=== PATIENT | female | born 1930 | race Caucasian/White ===

== ENCOUNTER 2018-03-06 08:13 | Inpatient (IN) | payer OTHER, MEDICARE ==
[2018-02-28 12:59] LABS: BILIRUBIN,URINE NEGATIVE (NEGATIVE); BLOOD, URINE NEGATIVE (NEGATIVE); CLARITY/URINE CLEAR (CLEAR); COLOR,URINE YELLOW (YELLOW); GLUCOSE,URINE NEGATIVE (NEGATIVE); KETONES,URINE NEGATIVE (NEGATIVE); LEUKOCYTE ESTERASE ,URINE 3+ (NEGATIVE); NITRITE, URINE NEGATIVE (NEGATIVE); PROTEIN URINE NEGATIVE (NEGATIVE); UROBILINOGEN,URINE 0.2 (0.2-1.0)
[2018-02-28 13:04] LABS: BASOPHILS # (AUTO) 0.1 K/uL (0.0-0.2); BASOPHILS % (AUTO) 1.1 % (0.0-2.0); EOSINOPHILS # (AUTO) 0.4 K/uL (0.0-0.4); EOSINOPHILS % (AUTO) 6.1 % (0.0-4.0); HEMATOCRIT 33.9 % (36-48); HEMOGLOBIN 11.2 g/dL (12.0-16.0); LYMPHOCYTES # (AUTO) 1.3 K/uL (1.0-5.5); LYMPHOCYTES % (AUTO) 20.9 % (20.5-51.5); MEAN CORPUSCULAR HEMOGLOBIN 32 pg (27-31); MEAN CORPUSCULAR HGB CONC 33 % (32-36); MEAN CORPUSCULAR VOLUME 97 fL (79.0-98.0); MONOCYTES # (AUTO) 0.3 K/uL (0.0-1.0); MONOCYTES % (AUTO) 4.8 % (1.7-9.3); NEUTROPHILS # (AUTO) 4.3 K/uL (1.8-7.7); NEUTROPHILS % (AUTO) 67.1 % (40.0-70.0); PLATELET COUNT (AUTO) 236 K/uL (130-430); RED BLOOD CELL COUNT(AUTO) 3.49 MIL/uL (4.2-6.2); WHITE BLOOD COUNT (AUTO) 6.4 K/uL (4.8-10.8)
[2018-02-28 13:06] LABS: BACTERIA,URINE MODERATE /HPF (None Seen); MUCUS,URINE None Seen /LPF (None Seen); RBC,URINE 0-3 /HPF (0-3)
[2018-02-28 13:15] LABS: ANION GAP 4 (5-15); CALCIUM 9.5 mg/dL (8.4-11.0); CHLORIDE 101 mmol/L (98-107); CREATININE 1.41 mg/dL (0.55-1.30); GLUCOSE 103 mg/dL (70-99); POTASSIUM 4.1 mmol/L (3.5-5.1); SODIUM SERUM 137 mmol/L (136-145); UREA NITROGEN, BLOOD 28 mg/dL (8-21)
[~2018-03-06] VITALS: Ht 165.1 cm; Wt 66.2 kg
[2018-03-06] VITALS (8 sets, daily range): BP systolic 96–129
[2018-03-06] MEDS ORDERED: CLINDAMYCIN 600 mg/50mL D5W 50 ML IV ONE (08:15)
[2018-03-06] MEDS ORDERED: TRANEXAMIC ACID 1,000 MG/10 ML VIAL IV ONE ×2 (08:30→13:45)
[2018-03-06] MEDS ORDERED: VANCOMYCIN HCL 1,000 MG in NS 250 ML IV SCH (08:30)
[2018-03-06] MEDS ORDERED: CALC-823 PO (09:30)
[2018-03-06] MEDS ORDERED: HYDR-4272 PO (09:30)
[2018-03-06] MEDS ORDERED: AMIO100T4 PO (09:30)
[2018-03-06] MEDS ORDERED: VIT B 12 (09:30)
[2018-03-06] MEDS ORDERED: ACET-2634 PO (09:30)
[2018-03-06] MEDS ORDERED: APIX2.5T PO (09:30)
[2018-03-06] MEDS ORDERED: FERR140T PO (09:30)
[2018-03-06 09:54] LABS: INR 1.1 (0.8-1.2); PROTHROMBIN TIME 10.8 SECS (9.5-12.5)
[2018-03-06] MEDS ORDERED: POLYMYXIN 500,000/BACIT.10,000 UNITS in NS IRR 1 L IR ONE (10:43)
[2018-03-06] MEDS ORDERED: METOCLOPRAMIDE HCL 10 MG/2 ML VIAL IVP PRN (13:15)
[2018-03-06] MEDS ORDERED: LR 1,000 ML IV SCH (13:15)
[2018-03-06] MEDS ORDERED: MORPHINE 4 MG/ML INJ. SYRINGE IVP PRN ×3 (13:15)
[2018-03-06] MEDS ORDERED: fentaNYL CITRATE 250 MCG/5 ML AMP ONE (13:45)
[2018-03-06] MEDS ORDERED: ONDANSETRON HCL 4 MG/2 ML VIAL ONE (13:45)
[2018-03-06] MEDS ORDERED: SUGAMMADEX SODIUM 200 MG/2 ML VIAL IV ONE (13:45)
[2018-03-06] MEDS ORDERED: ROCURONIUM BROMIDE 10 MG/ML (ZEMURON) ONE (13:45)
[2018-03-06] MEDS ORDERED: LR 1,000 ML IV.SOLN IV ONE (13:45)
[2018-03-06] MEDS ORDERED: PROPOFOL 200MG/ 20ML VIAL (DIPRIVAN) IV ONE (13:45)
[2018-03-06] MEDS ORDERED: MIDAZOLAM HCL 5 MG/ML VIAL (VERSED) IV ONE (13:45)
[2018-03-06] MEDS ORDERED: SEVOFLURANE 15 MIN GAS INH ONE (13:45)
[2018-03-06] MEDS ORDERED: MORPHINE SULFATE 10MG/10ML PF AMP ONE (13:45)
[2018-03-06] MEDS ORDERED: ePHEDrine sulfate 50 MG/ML VIAL ONE (13:45)
[2018-03-06] MEDS ORDERED: KETOROLAC TROMETHAMINE 30 MG VIAL ONE (13:45)
[2018-03-06] MEDS ORDERED: ATROPINE SULFATE 0.4 MG/ML VIAL ONE (13:59)
[2018-03-06] MEDS ORDERED: ONDANSETRON HCL 4 MG/2 ML VIAL IVP PRN (14:00)
[2018-03-06] MEDS ORDERED: DIPHENHYDRAMINE INJ 50 MG/ML VIAL IVP PRN (14:00)
[2018-03-06] MEDS ORDERED: ACETAMINOPHEN 500 MG TABLET PO PRN (14:00)
[2018-03-06] MEDS ORDERED: ATROPINE SULFATE 0.4 MG/ML VIAL SUBCUT ONE (14:00)
[2018-03-06] MEDS ORDERED: DIPHENHYDRAMINE HCL 25 MG CAPSULE PO PRN (14:00)
[2018-03-06] MEDS ORDERED: MILK OF MAGNESIA 30 ML UDC PO PRN (14:00)
--- NOTE | 2018-03-06 15:17 | NUR ---
CONSULT CARDIOLOGY [facility] [address] DR HUNTER [phone] S/W SKIP OFFICE @ [id number]
[2018-03-06] MEDS: D5/0.45 NS 1,000 ML IV SCH ×2 (15:23→22:48)
--- NOTE | 2018-03-06 15:26 | NUR ---
OR ADMISSION REPORT IS RECEIVED FROM OR NURSE AND CARE IS ENDORSED TO MYSELF. PT IS RECEIVED AWAKE, ALERT, AND ORIENTED X4. PT IS GROGGY AND SLEEPY. INITIAL VS SHOW LOW BLOOD PRESSURE AND LOW HEART RATE TRENDING IN MID TO LOW 40S. PT HAS CARD CATHETER DRAINING TO GRAVITY. PT IS ON 1L O2 VIA NC WITH O2 SATURATIONS SUSTAINING AT 95%. WHITE BOARD IS UPDATED AND FAMILY IS MADE AWARE OF PLAN. ICE PACK ON LEFT HIP, PLEXI PULSES ON BILATERAL FEET. PEDAL PULSES ARE PRESENT AND PT IS ABLE TO WIGGLE TOES. CURRENT NEEDS ARE MET. BED IS AT LOWEST POSITION, CALL LIGHT WITHIN REACH, THREE SIDE RAILS UP, BED ALARM IS ON. WILL CONTINUE TO MONITOR.
--- NOTE | 2018-03-06 16:45 | NUR ---
ROUNDS LATE ENTRY DUE TO PT CARE: PT IS IN A DEEP SLEEP. PT IS HARD TO AROUSE. BLOOD PRESSURE HAS IMPROVED BUT O2 IS GOING DOWN AND PT WAS PLACED ON MASK O2 ON 2L. PEDAL PULSES ARE PRESENT AND STRONG. DRESSING IS CLEAN, DRY, AND INTACT. DR. PARISI WAS PAGED. WILL CONTINUE TO MONITOR.
[2018-03-06] MEDS ORDERED: TRANEXAMIC ACID 1,000 MG in NS 50 ML IV ONE (17:00)
[2018-03-06] MEDS ORDERED: LevALBUTEROL HCL 1.25 MG/0.5 ML *CONC.* VIAL.NEB (XOPENEX CONC.) INH PRN (18:30)
--- NOTE | 2018-03-06 18:30 | NUR ---
ICU TRANSFER SPOKE WITH DR. PARISI REGARDING PT BREATHING AND LOW HEART RATE AND HE ORDERED FOR PT TO BE TRANSFERRED TO ICU. REPORT WAS GIVEN TO VARGHESE CHARGE NURSE IN ICU. SPOUSE WAS CALLED AND NOTIFIED AND IS AWARE. DR. BRISENO WAS ALSO PAGED AND DR. CELESTIN IS GEOTHERMAL FIELD TECHNICIAN. AWAITING CALL BACK.
--- NOTE | 2018-03-06 18:56 | NUR ---
Paged Dr. River, Dr Benz is food demonstrator, dialed [phone], s/w Magdalena.
--- NOTE | 2018-03-06 19:30 | NUR ---
PM ASSESSMENT REPORT RECEIVED FROM VARGHESE HOOPER. PT RECEIVED IN BED WITH EYES CLOSED, PT IS EASILY AROUSABLE, AAOX3, AND LETHARGIC. PT ON 1L MASK, PT CHANGED TO NC AT 1L. PT A-FIB ON MONITOR. 18G TO LFA INFUSING D5 1/2 NS @ 125 CC/HR. INCISION SITE NOTED TO L HIP, DRESSING CDI. CARD CATH IN PLACE DRAINING GABBY URINE TO GRAVITY. ABDUCTOR PILLOW IN PLACE. PLEXI-PULSES IN PLACE. TRAPEZE AVAILABLE FOR PT AT BEDSIDE. PT DENIES ANY PAIN OR DISCOMFORT AT THIS TIME. HOB ELEVATED, BED IN LOWEST POSITION, CALL LIGHT IN REACH. WILL CONTINUE TO MONITOR PT.
[2018-03-06] MEDS: LevALBUTEROL HCL 1.25 MG/0.5 ML *CONC.* VIAL.NEB (XOPENEX CONC.) INH SCH (19:44)
--- NOTE | 2018-03-06 19:45 | NUR ---
MD ROUNDS DR. MAYFIELD AT BEDSIDE TO EVALUATE PT. ORDERS LEFT AND WILL BE CARRIED OUT.
[2018-03-06] MEDS: SENNOSIDES 8.6 MG TABLET PO SCH (20:14)
--- NOTE | 2018-03-06 21:15 | NUR ---
MD CALL DR. RIVER CALLED FOR PT UPDATES. UPDATED ON PT CONDITION AT THIS TIME. NO NEW ORDERS LEFT AT THIS TIME. WILL CONTINUE TO MONITOR PT.
[2018-03-07] VITALS (24 sets, daily range): BP systolic 90–124
--- NOTE | 2018-03-07 | NUR ---
RN ROUNDS PT RESTING COMFORTABLY IN BED WITH EYES CLOSED, SNORING NOTED. VSS, NO S/S OF DISTRESS NOTED. PT IS EASILY AROUSABLE AND REPOSITIONED AT THIS TIME. PT ENCOURAGED TO USE IS, UP TO 1000 ML VOLUME NOTED. PT DENIES ANY PAIN OR DISCOMFORT AT THIS TIME. WILL CONTINUE TO MONITOR PT.
[2018-03-07] MEDS: LevALBUTEROL HCL 1.25 MG/0.5 ML *CONC.* VIAL.NEB (XOPENEX CONC.) INH SCH ×4 (01:08→19:26)
--- NOTE | 2018-03-07 02:30 | NUR ---
RN ROUNDS PT REPOSITIONED AT THIS TIME. PT TOLERATED REPOSITIONING WELL, NO S/S OF DISTRESS NOTED. BREATHING IS EVEN AND UNLABORED. PT DENIES ANY PAIN OR DISCOMFORT AT THIS TIME. WILL CONTINUE TO MONITOR.
--- NOTE | 2018-03-07 02:43 | NUR ---
PAGED DR. PARISI PAGED REGARDING PT URINE OUTPUT OF 100 CC SINCE BEGINNING OF SHIFT. PER MD NO CHANGES TO IVF AND NO NEW ORDERS RECEIVED. WILL CONTINUE TO MONITOR PT.
[2018-03-07] MEDS ORDERED: NACL 0.9% 1,000 ML IV ONE (04:15)
--- NOTE | 2018-03-07 04:15 | NUR ---
PAGELisandro MAYFIELD MADE AWARE OF PT HR DROPPING TO LOW 30s, BP DROPPING TO LOW 90s, AND UO OF 110 CC THROUGHOUT SHIFT SO FAR. MD TO ORDER 1000 CC NS BOLUS. WILL CARRY OUT ORDERED AND CONTINUE TO MONITOR PT.
[2018-03-07] MEDS ORDERED: ACETAMINOPHEN 500 MG TABLET PO SCH (06:00)
--- NOTE | 2018-03-07 06:22 | NUR ---
RN ROUNDS PT RESTING COMFORTABLY IN BED WITH EYES CLOSED, PT EASILY AROUSABLE. VSS, NO S/S OF DISTRESS NOTED, BREATHING IS EVEN AND UNLABORED ON 1L NC. PT DENIES ANY PAIN OR DISCOMFORT AT THIS TIME. WILL CONTINUE TO MONITOR PT.
[2018-03-07] MEDS: D5/0.45 NS 1,000 ML IV SCH ×3 (06:40→17:38)
[2018-03-07 06:51] LABS: ANION GAP 5 (5-15); BASOPHILS % (AUTO) 0.2 % (0.0-2.0); CHLORIDE 103 mmol/L (98-107); CREATININE 1.49 mg/dL (0.55-1.30); EOSINOPHILS # (AUTO) 0.2 K/uL (0.0-0.4); EOSINOPHILS % (AUTO) 1.8 % (0.0-4.0); GLUCOSE 133 mg/dL (70-99); HEMATOCRIT 26.5 % (36-48); HEMOGLOBIN 8.6 g/dL (12.0-16.0); LYMPHOCYTES # (AUTO) 0.5 K/uL (1.0-5.5); LYMPHOCYTES % (AUTO) 5.2 % (20.5-51.5); MEAN CORPUSCULAR HEMOGLOBIN 32 pg (27-31); MEAN CORPUSCULAR HGB CONC 33 % (32-36); MEAN CORPUSCULAR VOLUME 98 fL (79.0-98.0); MONOCYTES # (AUTO) 0.6 K/uL (0.0-1.0); MONOCYTES % (AUTO) 6.5 % (1.7-9.3); NEUTROPHILS # (AUTO) 8.4 K/uL (1.8-7.7); NEUTROPHILS % (AUTO) 86.3 % (40.0-70.0); PLATELET COUNT (AUTO) 174 K/uL (130-430); POTASSIUM 4.4 mmol/L (3.5-5.1); RED BLOOD CELL COUNT(AUTO) 2.71 MIL/uL (4.2-6.2); RED CELL DISTRIBUTION WIDTH 15.4 % (9.0-15.0); SODIUM SERUM 137 mmol/L (136-145); UREA NITROGEN, BLOOD 32 mg/dL (8-21); WHITE BLOOD COUNT (AUTO) 9.7 K/uL (4.8-10.8)
--- NOTE | 2018-03-07 07:19 | NUR ---
ENDORSEMENT BEDSIDE REPORT GIVEN TO LAURE WILLSON RN USING SBAR APPROACH.
--- NOTE | 2018-03-07 07:34 | NUR ---
AM NOTES IN BED, AWAKE, ALERT. DENIES ANY PAIN OR DISCOMFORT. ON ABDUCTOR PILLOW. LEFT HIP DRESSING IS DRY AND INTACT. CARD CATH EMPTY AT THIS TIME. IVF INFUSING WELL. DENIES ANY SHORTNESS OF BREATH, CHEST PAIN OR ANY DISCOMFORT. UPDATE PLAN OF CARE. WILL CONTINUE TO MONITOR.
--- NOTE | 2018-03-07 08:00 | NUR ---
notes- spoke to dr. aguillon and made aware and labs results. stated that he wants to be on xarelto for 1-[address] Ware.
--- NOTE | 2018-03-07 08:10 | NUR ---
rounds Seen by Dr. Sanchez and spoke to Dr. River about the xarelto. Per Dr. sanchez he will take care of it. Dr. Sanchez also hold the therapy for today.
[2018-03-07] MEDS ORDERED: NS 500 ML IV ONE (08:15)
[2018-03-07] MEDS: MULTIVITAMINS TAB 1 TABLET PO SCH (08:40)
[2018-03-07] MEDS: CALCIUM CARBONATE/VITAMIN D3 1 TAB TABLET PO SCH (08:40)
[2018-03-07] MEDS: ASCORBIC ACID 500 MG TABLET PO SCH ×2 (08:40→20:21)
[2018-03-07] MEDS: FERROUS SULFATE 140 MG TABLET.ER PO SCH ×2 (08:41→20:21)
[2018-03-07] MEDS ORDERED: APIXABAN 2.5 MG TABLET PO SCH (09:00)
[2018-03-07] MEDS ORDERED: AMIODARONE HCL 200 MG TABLET PO SCH (09:00)
[2018-03-07] MEDS ORDERED: FERROUS SULFATE 140 MG TABLET.ER PO SCH (09:00)
--- NOTE | 2018-03-07 09:20 | NUR ---
P.T. NOTES RECEIVED P.T. EVAL ORDER FROM DR. RIVER, PT WAS ADMITTED TO ICU, SPOKE WITH LAURE WILLSON RN WHO SAID DR. HUNTER WANTS TO HOLD OFF P.T. FOR ONE MORE DAY. CALL WAS MADE TO DR. RIVER'S EXCHANGE AND LEFT MESSAGE.
--- NOTE | 2018-03-07 09:53 | NUR ---
Nutrition Update Mervin Scale 15 noted. Pt admitted for unilateral primary osteoarthritis, L hip. Diet: regular BMI: 24.3 kg/m2 RD to follow per nutrition care standards.
--- NOTE | 2018-03-07 09:55 | NUR ---
notes-in bed, resting. breathing even and unlabored. Bolus of NS 500 done. no acute distress noted. will monitor.
[2018-03-07] MEDS: RIVAROXABAN 10 MG TABLET PO SCH (09:59)
[2018-03-07] MEDS ORDERED: RIVAROXABAN 10 MG TABLET PO SCH (10:00)
--- NOTE | 2018-03-07 10:30 | NUR ---
Notes- In bed, awake. at bedside. denies any pain or discomfort. Patient stated that she is comfortable at this time and refused to be turned. will monitor.
--- NOTE | 2018-03-07 12:54 | NUR ---
MD ROUNDS SEEN BY DR. RIVER AT BEDSIDE. MADE AWARE THAT THERAPY WAS HELD TODAY PER DR. HUNTER.
[2018-03-07] MEDS: HYDROcodone/ACETAMIN 10-325 MG TAB PO PRN (14:30)
--- NOTE | 2018-03-07 14:32 | NUR ---
Notes Turned and repositioned, Patient complain of 7/10 pain level on surgical site and her left knee. medicated with norco as ordered. no acute distress noted. will monitor.
--- NOTE | 2018-03-07 16:06 | NUR ---
Notes- In bed, resting. Pain is controlled and better per patient. instructed and assisted to use incentive spirometer. pt verbalize understanding. Turned and repositioned.
--- NOTE | 2018-03-07 17:30 | NUR ---
Notes Pt is sleeping, wants to eat later. denies any pain or discomfort. no distress noted.
--- NOTE | 2018-03-07 18:46 | NUR ---
Notes In bed with eyes closed, breathing even and unlabored. abductor pillow on, uses incentive spirometer this shift, IVF infusing well. Urine output is 290 the whole shift. vss. no acute distress noted. all needs meet. needs attended. will endorse
--- NOTE | 2018-03-07 19:10 | NUR ---
Initial Notes Received patient in resting in bed but easily awaken by verbal stimuli. Patient is awake alert oriented x3. No s/s of any distress noted with 1 L via n/c. IV noted to L f/a g 18, no infiltrate with good blood return.Dressing noted to L hip, intact no bleeding visible. Abductor pillow noted in between legs. Will closely monitor.
[2018-03-07] MEDS: SENNOSIDES 8.6 MG TABLET PO SCH (20:20)
--- NOTE | 2018-03-07 21:10 | NUR ---
Reposition in bed Reposition in bed for comfort and circulation. No s/o pain and no s/s of any distress noted. Call light in reach, will cont to monitor.
[2018-03-08] VITALS (14 sets, daily range): BP systolic 100–135
[2018-03-08] MEDS: LevALBUTEROL HCL 1.25 MG/0.5 ML *CONC.* VIAL.NEB (XOPENEX CONC.) INH SCH ×4 (01:06→20:25)
[2018-03-08] MEDS: HYDROcodone/ACETAMIN 10-325 MG TAB PO PRN (05:32)
[2018-03-08 06:35] LABS: CREATININE 1.32 mg/dL (0.55-1.30); GLUCOSE 144 mg/dL (70-99); UREA NITROGEN, BLOOD 27 mg/dL (8-21)
[2018-03-08 06:36] LABS: EOSINOPHILS # (AUTO) 0.2 K/uL (0.0-0.4); LYMPHOCYTES # (AUTO) 0.6 K/uL (1.0-5.5); LYMPHOCYTES % (AUTO) 5.8 % (20.5-51.5); MEAN CORPUSCULAR HEMOGLOBIN 33 pg (27-31)
[2018-03-08 06:52] LABS: BASOPHILS % (AUTO) 0.1 % (0.0-2.0); EOSINOPHILS % (AUTO) 2.4 % (0.0-4.0); HEMATOCRIT 26.2 % (36-48); HEMOGLOBIN 8.8 g/dL (12.0-16.0); MEAN CORPUSCULAR HGB CONC 33 % (32-36); MEAN CORPUSCULAR VOLUME 99 fL (79.0-98.0); MONOCYTES # (AUTO) 0.8 K/uL (0.0-1.0); MONOCYTES % (AUTO) 8.3 % (1.7-9.3); NEUTROPHILS # (AUTO) 8.3 K/uL (1.8-7.7); NEUTROPHILS % (AUTO) 83.4 % (40.0-70.0); PLATELET COUNT (AUTO) 142 K/uL (130-430); RED BLOOD CELL COUNT(AUTO) 2.64 MIL/uL (4.2-6.2); RED CELL DISTRIBUTION WIDTH 14.9 % (9.0-15.0); WHITE BLOOD COUNT (AUTO) 9.9 K/uL (4.8-10.8)
--- NOTE | 2018-03-08 07:00 | NUR ---
Dr River change dressing Assisted Dr River with dressing change. Dr River is pleased with the incision's appearance. Dr River inform the patient that she will ambulate today with PT. Katie HOOPER is also present.
--- NOTE | 2018-03-08 07:00 | NUR ---
D/C velasquez cath D/c f/c as ordered. Tolerated well.
--- NOTE | 2018-03-08 07:03 | NUR ---
End of shift notes Patient is resting at this time. No s/s of any distress noted. All needs met and anticipated by noc nurses. Will endorse to incoming nurse.
--- NOTE | 2018-03-08 07:20 | NUR ---
Aleta River at bedside for evaluation of incision and dressing change. Patient alert and oriented, pain medication received 1 hour prior. Assisted patient turn. Incision is well approximated and small amount of blood noted to surgical dressing.
--- NOTE | 2018-03-08 07:25 | NUR ---
Report Report received from rn shift mgr nurseJone. POD 2, velasquez to be discontinued, Jone to perform. Will monitor for urine output within 6 hours, and bladder distention.
--- NOTE | 2018-03-08 07:30 | NUR ---
Opening note Patient report received from night order selector nurse. Patient resting comfortably. Medicated for pain by night order selector nurse. Patient dressing changed with Dr. River. Patient has no notable signs of distress. Patient oxygen at 1L via nasal cannula. Patient IVF at 125ml/hr per md orders. Patient vital signs stable. Patient sinus tae to sinus rhythm on the monitor. Patient adductor pillow in place. Neuro check completed. Patient has good sensation, color, pulses, and movement to affected extremity. Will continue to follow up and monitor patient for changes in status.
[2018-03-08 07:37] LABS: ANION GAP 6 (5-15); CHLORIDE 100 mmol/L (98-107); POTASSIUM 3.8 mmol/L (3.5-5.1); SODIUM SERUM 132 mmol/L (136-145)
--- NOTE | 2018-03-08 08:30 | NUR ---
Dr. Daniel Sanchez at bedside for evaluation of patient. Per Dr. Sanchez, patient able to be transferred to telemetry floor.
[2018-03-08] MEDS: MULTIVITAMINS TAB 1 TABLET PO SCH (09:20)
[2018-03-08] MEDS: ASCORBIC ACID 500 MG TABLET PO SCH ×2 (09:20→21:39)
[2018-03-08] MEDS: FERROUS SULFATE 140 MG TABLET.ER PO SCH ×2 (09:21→21:55)
[2018-03-08] MEDS: THEOPHYLLINE ANHYDROUS 300 MG TAB.SR.12H PO SCH (09:21)
[2018-03-08] MEDS: CALCIUM CARBONATE/VITAMIN D3 1 TAB TABLET PO SCH (09:23)
[2018-03-08] MEDS: RIVAROXABAN 10 MG TABLET PO SCH (09:23)
--- NOTE | 2018-03-08 09:45 | NUR ---
PT Physical therapy at bedside for evaluation and treat. Will follow up regarding status after completion.
--- NOTE | 2018-03-08 10:35 | NUR ---
Physical therapy Physical therapy completed. Patient tolerated. Patient resumed adductor pillow.
--- NOTE | 2018-03-08 12:20 | NUR ---
Report Report given to RUFUS Muniz.
--- NOTE | 2018-03-08 12:30 | NUR ---
Patient A/Ox3, SR, JACKSON. IV on left FA, #18, infusing with D5 1/2 NS at 125ml/hr, intact and patent. on O2 2L, satting 95-98%. Hip Adductor noted. Dressing on left hip CDI. Call light in place, bed locked at the lowest position, will continue to monitor.
--- NOTE | 2018-03-08 12:35 | NUR ---
Transferred Patient transferred to Bed 122A. Report given to RUFUS Muniz. Patient tolerated transfer. Transferred with portable monitor and portable oxygen tank at 1LPM.
[2018-03-08] MEDS: HYDROcodone/ACETAMIN 5-325 MG TAB (NORCO/ VICODIN) PO PRN (12:50)
[2018-03-08] MEDS: HYDROmorphone 1 MG INJ. 1 MG/ML AMPUL IVP PRN ×2 (13:30→19:58)
--- NOTE | 2018-03-08 13:30 | NUR ---
Patient hip pain is not relieved by [place] 5 given about 45 minutes ago. Dilaudid 0.5mg is given IVP. Will reassess.
[2018-03-08] MEDS: D5/0.45 NS 1,000 ML IV SCH ×2 (13:57→21:57)
--- NOTE | 2018-03-08 14:18 | NUR ---
Patient is receiving PT in bed.
--- NOTE | 2018-03-08 15:55 | NUR ---
PHYSICAL THERAPY CO-SIGN The Physical Therapy Progress Notes documented by Postage Machine Operator have been reviewed. Reviewed/Co-Signed by: Rossi Grossman PT Documentation Done by: LISA MOBLEY PTA VERBAL CUES GIVEN FOR PROPER SEQUENCING FOR FUNCTIONAL TRANSFERS. Addendum: 03/08/18 at 1556 by Rossi Grossman PT Amended: Links added.
--- NOTE | 2018-03-08 16:18 | NUR ---
patient is at rest, no signs of distress noted. SR on monitor.
--- NOTE | 2018-03-08 17:45 | NUR ---
Patient urinated on bedpan.
--- NOTE | 2018-03-08 19:58 | NUR ---
Pain mgmt Pt c/o 01/26 pain L. hip area. Medicated with Dilaudid 0.5mg IVP as needed. Call light within easy reach. Will continue to monitor.
--- NOTE | 2018-03-08 20:00 | NUR ---
Opening notes Pt AAOx3, VSS, afebrile. No acute distress noted. L. hip dressing C/D/I. Neurovasc check intact. Pt able to wiggle toes. Isreal plexi pulses on. Abductor pillow in place. 2+ edema noted on isreal ankles. Pt tolerated dinner. IV L. hand 18G saline lock, clear and patent. Call light within reach. Safety measures in place. Will continue to monitor.
--- NOTE | 2018-03-08 21:35 | NUR ---
Bedpan Pt assisted to use bedpan. Pt urinated. Pericare provided. Dressing L. hip C/D/I. Call light within reach. To monitor.
[2018-03-08] MEDS: SENNOSIDES 8.6 MG TABLET PO SCH (21:39)
--- NOTE | 2018-03-08 21:40 | NUR ---
Incentive Spirometry Pt encouraged to use I.S. 10x while awake. Pt demonstrated understanding doing 750ml. HOB elevated. Pt tolerated well.
[2018-03-09 00:05] VITALS: BP_SYST 141
--- NOTE | 2018-03-09 00:10 | NUR ---
Rounds Pt asleep, easily arousable. VSS. Neurovasc check intact. Pt able to move toes, warm to touch. Isreal plexi pulses on. Abd pillow in place. Call light within reach. To monitor.
[2018-03-09] MEDS: LevALBUTEROL HCL 1.25 MG/0.5 ML *CONC.* VIAL.NEB (XOPENEX CONC.) INH SCH ×4 (00:49→20:02)
--- NOTE | 2018-03-09 01:40 | NUR ---
Up to commode Per ADN pt called to use the commode to have a bowel movement, while this nurse on lunch break. ETCHER ENAMELING and ADN assisted pt to BSC, but pt just passed gas.
--- NOTE | 2018-03-09 04:40 | NUR ---
Rounds Pt asleep, easily arousable. No acute distress noted. Pt denies pain at this time. Neurovasc circulation intact, pt able to move toes, warm to touch. IV Fluids TKO left hand 18G no infiltration noted. Call light within reach. Repositioned. Abd pillow in place. Will continue to monitor.
[2018-03-09] MEDS: D5/0.45 NS 1,000 ML IV SCH ×3 (04:56→21:57)
[2018-03-09 06:32] LABS: ANION GAP 4 (5-15); CALCIUM 9.1 mg/dL (8.4-11.0); CHLORIDE 97 mmol/L (98-107); CREATININE 1.24 mg/dL (0.55-1.30); GLUCOSE 106 mg/dL (70-99); POTASSIUM 3.4 mmol/L (3.5-5.1); SODIUM SERUM 129 mmol/L (136-145); UREA NITROGEN, BLOOD 20 mg/dL (8-21)
--- NOTE | 2018-03-09 06:40 | NUR ---
Closing notes Pt awake, resting quietly. No s/s distress noted. Pt denies any pain at this time. L hip dressing to be changed today. IV TKO L. hand 18G no infiltration noted. Isreal plexipulses on, abductor pillow in place. Hip precaution in place. Call light within reach. To endorse to am nurse.
[2018-03-09 06:56] LABS: BASOPHILS % (AUTO) 0.2 % (0.0-2.0); EOSINOPHILS # (AUTO) 0.2 K/uL (0.0-0.4); HEMATOCRIT 28.1 % (36-48); HEMOGLOBIN 9.3 g/dL (12.0-16.0); LYMPHOCYTES # (AUTO) 0.5 K/uL (1.0-5.5); LYMPHOCYTES % (AUTO) 3.8 % (20.5-51.5); MEAN CORPUSCULAR HEMOGLOBIN 33 pg (27-31); MEAN CORPUSCULAR HGB CONC 33 % (32-36); MEAN CORPUSCULAR VOLUME 99 fL (79.0-98.0); MONOCYTES # (AUTO) 0.8 K/uL (0.0-1.0); MONOCYTES % (AUTO) 6.8 % (1.7-9.3); NEUTROPHILS # (AUTO) 10.4 K/uL (1.8-7.7); NEUTROPHILS % (AUTO) 87.2 % (40.0-70.0); PLATELET COUNT (AUTO) 182 K/uL (130-430); RED BLOOD CELL COUNT(AUTO) 2.85 MIL/uL (4.2-6.2); RED CELL DISTRIBUTION WIDTH 14.3 % (9.0-15.0); WHITE BLOOD COUNT (AUTO) 11.9 K/uL (4.8-10.8)
[2018-03-09 08:00] VITALS: BP_SYST 150
--- NOTE | 2018-03-09 08:03 | NUR ---
opening note Report received from [facility] shift nurse. Patient is currently awake and resting in bed. No signs of distress noted at the moment. Left hip dressing is dry and intact Abductor pillow is in place. Patient is able to move all the toes on the left leg. Left pedal pulse is palpable. Moderate pitting edema noted over bilateral lower extremities. O2 is on 2l via NC. Call light is within reach and bed is in low position. Will continue to monitor.
[2018-03-09] MEDS: THEOPHYLLINE ANHYDROUS 300 MG TAB.SR.12H PO SCH (09:00)
[2018-03-09] MEDS: MULTIVITAMINS TAB 1 TABLET PO SCH (09:00)
[2018-03-09] MEDS: RIVAROXABAN 10 MG TABLET PO SCH (09:00)
[2018-03-09] MEDS: CALCIUM CARBONATE/VITAMIN D3 1 TAB TABLET PO SCH (09:00)
[2018-03-09] MEDS: ASCORBIC ACID 500 MG TABLET PO SCH ×2 (09:00→20:57)
[2018-03-09] MEDS: FERROUS SULFATE 140 MG TABLET.ER PO SCH ×2 (09:00→20:57)
[2018-03-09 09:20] VITALS: BP_SYST 150
--- NOTE | 2018-03-09 10:20 | NUR ---
Rounds Patient worked with PT and was able to take a few steps.
--- NOTE | 2018-03-09 12:00 | NUR ---
IS teaching Instructed the patient on how to use the IS. Patient is only doing up to 1000. Will continue to monitor.
[2018-03-09 12:25] VITALS: BP_SYST 153
--- NOTE | 2018-03-09 12:30 | NUR ---
Rounds Patient is currently eating lunch in bed.
--- NOTE | 2018-03-09 12:34 | NUR ---
DC Planning: late entry: CM faxed referral inquiry to [facility] and received call back with pt's acceptance to the facility. There is no bed available at this time. CM to f/u.
--- NOTE | 2018-03-09 14:45 | NUR ---
Dressing Change Changed left hip dressing per Dr. River's orders. Incision is stapled with minor amount of drainage. Covered incision with gauze and paper tape.
--- NOTE | 2018-03-09 15:16 | NUR ---
Spoke with Informed Dr. Ware about patient's K of 3.4. Orders received.
[2018-03-09] MEDS ORDERED: POTASSIUM CHLORIDE 20 MEQ TAB.PRT.SR PO ONE (15:45)
[2018-03-09 16:02] VITALS: BP_SYST 139
--- NOTE | 2018-03-09 16:10 | NUR ---
MD Rounds Dr. Castro rounded on the patient. stated that from his standpoint patient may be transferred to [facility].
--- NOTE | 2018-03-09 16:36 | NUR ---
New IV site Started new IV on the right wrist 22g. Aspetic technique used. Patient tolerated well.
--- NOTE | 2018-03-09 18:58 | NUR ---
Closing Note Patient is resting in bed. No complaints of left hip pain throughout the shift. Abductor pillow is in place. Left pedal pulse is palpable. Patient is able to move all the toes on the affected extremity. Pexipulses are in place. Patient used the IS several times throughout the day. IV is on the right wrist 22g running NS@tko. Call light is within reach and bed is in low position. Will endorse care to the oncoming nurse.
[2018-03-09 20:00] VITALS: BP_SYST 139
--- NOTE | 2018-03-09 20:00 | NUR ---
Opening notes Pt awake, VSS, afebrile. No s/s distress or discomfort noted. Pt denies any pain. L. hip dressing C/D/I. Abductor pillow in between legs. Neurovasc circulation intact. Pt able to move left toes, flex ankles, warm to touch. Pt denies any numbness or tingling. Isreal plexi pulses on. IV TKO R. wrist 22. Safety measure in place. Call light within easy reach. To monitor. Addendum: 03/10/18 at 0654 by Radha Marion RN Noted skin tears on L. thigh open to air, photo taken.
[2018-03-09] MEDS: SENNOSIDES 8.6 MG TABLET PO SCH (20:57)
--- NOTE | 2018-03-09 21:30 | NUR ---
Hygiene care/bowel movement Pt incontinent of large amount of bowel movement. Pericare provided with [employer]GE [employer]W MEMBER assist. Dressing to L. hip C/D/I. Will continue to mointor.
--- NOTE | 2018-03-10 00:20 | NUR ---
Rounds Pt asleep, VSS. No s/s distress or discomfort noted. Bed low/locked, side rails up x 3. Call light within easy reach. To monitor.
[2018-03-10] MEDS: LevALBUTEROL HCL 1.25 MG/0.5 ML *CONC.* VIAL.NEB (XOPENEX CONC.) INH SCH ×3 (01:00→13:18)
--- NOTE | 2018-03-10 03:08 | NUR ---
Rounds Pt sleeping. Respirations even and unlabored. Bed low/locked. Call light within reach. will continue to monitor.
[2018-03-10 03:17] VITALS: BP_SYST 128
--- NOTE | 2018-03-10 05:25 | NUR ---
Rounds Pt sleeping, no s/s distress noted. Abductor pillow between legs in place. Plexi pulses on. IV R. wrist no infiltration noted. Call light within easy reach. Safety measures in place. To monitor.
[2018-03-10] MEDS: D5/0.45 NS 1,000 ML IV SCH (05:57)
--- NOTE | 2018-03-10 06:50 | NUR ---
Closing notes Pt awake no c/o pain or discomfort noted. Neurovasc circ intact. Pt able to move toes and flex ankle, skin warm to touch. IV TKO R. wrist 22G no infiltration noted. Abductor pillow in place between legs. L. hip dressing C/d/i. Isreal plexipulses in place. All needs met. To endorse to AM nurse.
--- NOTE | 2018-03-10 08:00 | NUR ---
AM AROUNDS: PATIENT LYING ON THE BED.BEDSIDE REPORT GIVEN BY NIGHT NURSE NEDA. ON O2 2L/NC,GOOD SATURATION. RIGHT WRIST IVF TO TKO. LEFT HIP DRESSING CLEAN AND DRY. NO COMPLAINED OF PAIN THIS TIME. CALL LIGHT WITH IN REACH. BED LOCKED AT LOWEST POSITION. BED ALARM ON. CONDITION GUARDED.
[2018-03-10 08:45] VITALS: BP_SYST 134
[2018-03-10] MEDS: ASCORBIC ACID 500 MG TABLET PO SCH (08:47)
[2018-03-10] MEDS: CALCIUM CARBONATE/VITAMIN D3 1 TAB TABLET PO SCH (08:47)
[2018-03-10] MEDS: MULTIVITAMINS TAB 1 TABLET PO SCH (08:47)
[2018-03-10] MEDS: THEOPHYLLINE ANHYDROUS 300 MG TAB.SR.12H PO SCH (08:48)
[2018-03-10] MEDS: FERROUS SULFATE 140 MG TABLET.ER PO SCH (08:53)
[2018-03-10] MEDS ORDERED: APIXABAN 2.5 MG TABLET PO SCH (09:00)
--- NOTE | 2018-03-10 09:05 | NUR ---
INCISION CARE: CLEANSE NS LEFT HIP INCISION WITH MANJU INTACT,PAT DRY, COVERED WITH 4X4 DRY GAUZE DRESSING AND PAPER TAPE FOR SECUREMENT.
--- NOTE | 2018-03-10 10:20 | NUR ---
PHYSICAL THERAPY: PHYSICAL THERAPIST WORKING WITH THE PATIENT AT THE BEDSIDE.
[2018-03-10 12:02] VITALS: BP_SYST 139
--- NOTE | 2018-03-10 12:25 | NUR ---
BSC: PATIENT ASSISTED BACK TO BED,HAD A BM AND VOIDED.POSITIONED PATIENT FOR LUNCH.
--- NOTE | 2018-03-10 12:26 | NUR ---
MEAL: PATIENT EATING HER LUNCH. CALL LIGHT WITH IN REACH. BED LOCKED AT LOWEST POSITION. BED ALARM ON.
--- NOTE | 2018-03-10 13:13 | NUR ---
[facility] ACC[facility]ED: SPOKE WITH PAT-RIG SITE ENGINEER RN FOR [facility] AND PATIENT ACCEPTED TO [facility] [place] [id number] CALL REPORT AT [phone],EXT [id number],BED AVAILABLE AFTER 3PM.ADMITTING -DR PARISI. CHARGE NURSE JAMAR AWARE. Addendum: 03/10/18 at 1527 by Renetta Clarke RN CORRECTED ABOVE WORD:ROOM [id number]
[2018-03-10 13:19] VITALS: BP_SYST 128
--- NOTE | 2018-03-10 14:53 | NUR ---
Rn Rounds: Patient resting. Patient's Darek and informed regarding the knot picker cloth time to dalia curtis at 1930 the earliest. Denies any pain this time.
[2018-03-10 16:20] VITALS: BP_SYST 128
--- NOTE | 2018-03-10 18:25 | NUR ---
report: report given to prem wolfe.
[2018-03-10] MEDS: HYDROcodone/ACETAMIN 5-325 MG TAB (NORCO/ VICODIN) PO PRN (18:29)
--- NOTE | 2018-03-10 18:30 | NUR ---
pain meds: due po norco given prior to transfer per patient's request.no complications noted.
--- NOTE | 2018-03-10 19:10 | NUR ---
TRANSFER NOTES: TRANSFER PACKETS GIVEN TO [facility] EMT DAISY.IV REMOVED,DRY GAUZE APPLIED AND NO BLEEDING NOTED.PERSONAL BELONGINGS COMPLETED,BLACK CELL PHONE SEND HOME WITH HER RAVINDRA.NO BELONGINGS BROUGHT WITH THE PATIENT TO SNF. [facility] TRANSPORTED PATIENT TO [facility] IN STABLE CONDITION.
== END 2018-03-10 19:10 | DRG 470 ==
LOC: SMU 08:13 → STU 15:07 → SIC 18:46 → STU 03-08 12:42
PROVIDERS: ADMIT Orthopaedic Surgery; ATTEND Orthopaedic Surgery
PROC: 0SRB01A Replacement of Left Hip Joint with Metal Synthetic Substitute, Uncemented, Open Approach (ICD-10-PCS; principal; 2018-03-06 12:00)
DX: M16.12 Unilateral primary osteoarthritis, left hip (principal); D62 Acute posthemorrhagic anemia; E87.1 Hypo-osmolality and hyponatremia; R00.1 Bradycardia, unspecified; I48.2 Chronic atrial fibrillation; I48.0 Paroxysmal atrial fibrillation; M17.12 Unilateral primary osteoarthritis, left knee; Z96.1 Presence of intraocular lens; G89.29 Other chronic pain; G62.9 Polyneuropathy, unspecified; J44.9 Chronic obstructive pulmonary disease, unspecified; M81.0 Age-related osteoporosis without current pathological fracture; M41.86 Other forms of scoliosis, lumbar region; Z96.641 Presence of right artificial hip joint; Z98.42 Cataract extraction status, left eye; M54.5 Low back pain; Z98.41 Cataract extraction status, right eye; Z85.3 Personal history of malignant neoplasm of breast; Z86.718 Personal history of other venous thrombosis and embolism; Z90.49 Acquired absence of other specified parts of digestive tract; Z80.8 Family history of malignant neoplasm of other organs or systems; Z80.42 Family history of malignant neoplasm of prostate; Z80.0 Family history of malignant neoplasm of digestive organs; Z88.6 Allergy status to analgesic agent; Z88.1 Allergy status to other antibiotic agents; Z91.048 Other nonmedicinal substance allergy status
CPT/HCPCS: 36415; 71046-TC; 73502; 80048; 81000-TC; 85025; 85610-TC; 85730-TC; 86886; 86900; 86901; 86920; 87081; 87086; 88304; 88311; 93005; 94010; 94640; 94760; 97110-GP; 97116-GP; 97530-GP; C1776; C9399; J0461; J1170; J1885; J2250; J2274; J2405; J2704; J3010; J3370; J3490; J7030; J7050; J7120; J7612